=== PATIENT | female | born 1995 | race African-American/Black ===

== ENCOUNTER 2016-05-14 16:19 | Emergency (ER) | payer OTHER ==
[~2016-05-14] VITALS: Ht 162.6 cm; Wt 70.7 kg
[~2016-05-14 16:19] MED LIST: BCPILLS PO
[2016-05-14 16:25] VITALS: Ht 162.6 cm; Wt 70.7 kg
[2016-05-14 16:45] VITALS: O2SAT 99
[2016-05-14] MEDS ORDERED: SODIUM CHLORIDE 0.9% 1000ML 500 ML IV STA (16:45)
[2016-05-14] MEDS ORDERED: KETOROLAC TROMETHAMINE 30 MG/ML VIAL IV STA (16:45)
[2016-05-14] MEDS ORDERED: PRVHFAIN INH (16:54)
[2016-05-14 16:58] LABS: BASO % 0.3 %; BASO ABS # 0.03 K/uL (0-0.2); COMPLETE YES; EOS % 1.2 %; HEMATOCRIT 38.6 % (37-47); IG% 0.4 %; LYMPH % 25.4 %; MEAN CORPUSCULAR HEMOGLOBIN 31.8 pg (25-34); MEAN PLATELET VOLUME 10.1 fL (7.4-10.4); MONO % 8.6 %; NEUT % 64.1 %; PLATELET COUNT 336 K/uL (130-400); RED BLOOD COUNT 4.24 M/uL (4.2-5.4); WHITE BLOOD COUNT 9.05 K/uL (4.8-10.8)
[2016-05-14] MEDS ORDERED: OPTIRAY 320 IV PRN (17:00)
--- NOTE | 2016-05-14 17:13 | EMERGENCY ROOM VISIT NOTE ---
History Report prepared by Sandeep: Yadiel Javed Under the Supervision of: Dr. Alirio Ford M.D. First contact with patient: 16:39 Chief Complaint: CARDIAC ASSESSMENT Stated Complaint: CHEST PAINS- AFTER TAKING INHALER History of Present Illness The patient is a 20 year old female who presents to the Emergency Room with complaints of severe right sided chest pain starting about an hour ago. The patient has a history of asthma. She had an onset of chest pain similar to an asthma exacerbation about an hour ago. She took a puff of her inhaler and felt that she inhaled something else as well. Soon after, she started having an uncontrollable cough and chest pain. She reports some blood in the cough. She describes the chest pain to be a tightness. She has worsening pain with deep breathing and palpation. She denies any recent long trips. She denies any personal or family history of blood clots. She is not currently on any control. The patient denies fevers, chills, or any other complaints. Source of History: patient Onset: about an hour ago Position: chest (right) Symptom Intensity: severe Quality: other (tightness) Modifying Factors (Worsening): breathing (deep), other (palpation) Associated Symptoms: + cough, No chills, No fevers Review of Systems See HPI for pertinent positives & negatives. A total of 10 systems reviewed and were otherwise negative. Past Medical & Surgical Medical Problems: (1) Asthma Family History Cancer Diabetes mellitus Hypertension Kidney disease Kidney stones Social History Smoking Status: Never Smoker Alcohol Use: none Marital Status: single Occupation Status: employed, student Current/Historical Medications Scheduled Prednisone (Prednisone), 2 TAB PO DAILY Scheduled PRN Albuterol (Ventolin Hfa), 1-2 PUFFS INH DIRECTED PRN for Shortness of Breath Albuterol Hfa (Ventolin Hfa), 3 PUFFS INH Q4 PRN for Wheezing Allergies Coded Allergies: No Known Allergies (Unverified , 05/14/16) Physical Exam Vital Signs Date Time Temp Pulse Resp B/P Pulse Ox O2 Delivery O2 Flow Rate FiO2 05/14/16 18:01 131/58 05/14/16 17:54 64 16 100 05/14/16 17:30 121/79 05/14/16 17:24 65 21 100 05/14/16 17:00 112/80 05/14/16 16:54 75 23 100 05/14/16 16:49 82 05/14/16 16:49 73 14 100 05/14/16 16:45 99 Room Air 05/14/16 16:40 131/85 05/14/16 16:34 99 Room Air 05/14/16 16:25 36.8 88 20 124/79 96 Room Air Physical Exam GENERAL: Patient is in no acute distress. HEENT: No acute trauma, normocephalic atraumatic, mucous membranes moist, no nasal congestion, no scleral icterus. NECK: No stridor, no adenopathy, no meningismus, trachea is midline. CHEST: Tenderness over the right anterior chest wall. LUNGS: Clear to auscultation bilaterally, no wheeze, no rhonchi, breath sounds equal. HEART: Subtle systolic murmur with an irregular rhythm, normal rate. ABDOMEN: Soft, nontender, bowel sounds positive, no hernias, no peritonitis. EXTREMITIES: No cyanosis or edema, full range of motion of all the joints without pain or difficulty, no signs for acute trauma. NEUROLOGIC: Oriented x 3, no acute motor or sensory deficits, no focal weakness. SKIN: No rash, no jaundice, no diaphoresis. Medical Decision & Procedures ER Provider Diagnostic Interpretation: X ray results and stated below per my interpretation and radiologist interpretation. CTA results and stated below per my review and radiologist interpretation: CHEST ONE VIEW PORTABLE CLINICAL HISTORY: EVALUATE RESPIRATORY DISTRESS. DYSPNEA dyspnea COMPARISON STUDY: No previous studies for comparison. FINDINGS: The bones soft tissues and hemidiaphragms are normal. The cardiomediastinal silhouette is normal. The lungs are clear. The pulmonary vasculature is normal. IMPRESSION: Negative chest. Electronically signed by: Phill Valadez M.D. 05/14/2016 5:13 PM Dictated Date/Time: 05/14/2016 5:[address] ANGIOGRAPHY OF THE CHEST, PULMONARY EMBOLUS PROTOCOL CLINICAL HISTORY: Chest pain. Respiratory distress. COMPARISON STUDY: Wrist radiograph performed earlier today. TECHNIQUE: Following IV administration of 94 mL of Optiray-320, helical axial images of the chest were obtained utilizing the pulmonary embolus protocol. Maximal intensity projections and sagittal and coronal reformats were viewed on an independent 3D workstation. IV contrast was administered without complication. CT DOSE: 205.77 mGy.cm FINDINGS: No pulmonary emboli are identified. There is no evidence of thoracic aortic dissection. The size of the heart is normal. There is no pericardial effusion. Central airways are patent. There is no consolidation to suggest pneumonia. Mild mosaic attenuation is noted, most evident within the right lower lobe. No pneumothorax or pleural effusion is present. Bony thorax and upper abdomen are unremarkable. IMPRESSION: 1. No pulmonary emboli identified. 2. No consolidation to suggest pneumonia. 3. Mild mosaic attenuation, most evident within the right lower lobe. This suggests air trapping. Electronically signed by: Samson Arroyo M.D. 05/14/2016 6:00 PM Dictated Date/Time: 05/14/2016 5:56 PM Laboratory Results 05/14/16 16:45 Red Blood Count 4.24, Mean Corpuscular Volume 91.0, Mean Corpuscular Hemoglobin 31.8, Mean Corpuscular Hemoglobin Concent 35.0, Mean Platelet Volume 10.1, Neutrophils (%) (Auto) 64.1, Lymphocytes (%) (Auto) 25.4, Monocytes (%) (Auto) 8.6, Eosinophils (%) (Auto) 1.2, Basophils (%) (Auto) 0.3, Neutrophils # (Auto) 5.79, Lymphocytes # (Auto) 2.30, Monocytes # (Auto) 0.78, Eosinophils # (Auto) 0.11, Basophils # (Auto) 0.03 05/14/16 16:45 Test 05/14/16 16:45 White Blood Count 9.05 K/uL (4.8-10.8) Red Blood Count 4.24 M/uL (4.2-5.4) Hemoglobin 13.5 g/dL (12.0-16.0) Hematocrit 38.6 % (37-47) Mean Corpuscular Volume 91.0 fL (80-100) Mean Corpuscular Hemoglobin 31.8 pg (25-34) Mean Corpuscular Hemoglobin Concent 35.0 g/dl (32-36) Platelet Count 336 K/uL (130-400) Mean Platelet Volume 10.1 fL (7.4-10.4) Neutrophils (%) (Auto) 64.1 % Lymphocytes (%) (Auto) 25.4 % Monocytes (%) (Auto) 8.6 % Eosinophils (%) (Auto) 1.2 % Basophils (%) (Auto) 0.3 % Neutrophils # (Auto) 5.79 K/uL (1.4-6.5) Lymphocytes # (Auto) 2.30 K/uL (1.2-3.4) Monocytes # (Auto) 0.78 K/uL (0.11-0.59) Eosinophils # (Auto) 0.11 K/uL (0-0.5) Basophils # (Auto) 0.03 K/uL (0-0.2) RDW Standard Deviation 39.7 fL (36.4-46.3) RDW Coefficient of Variation 11.9 % (11.5-14.5) Immature Granulocyte % (Auto) 0.4 % Immature Granulocyte # (Auto) 0.04 K/uL (0.00-0.02) Urine Test NEG (NEG) Anion Gap 8.0 mmol/L (3-11) Est Creatinine Clear Calc Drug Dose 90.2 ml/min Estimated GFR () 98.7 Estimated GFR (Non- 85.1 BUN/Creatinine Ratio 7.4 (10-20) Calcium Level 8.8 mg/dl (8.5-10.1) Laboratory results reviewed by me. Medications Administered Medications (Trade) Dose Ordered Sig/Torin Route Start Time Stop Time Status Last Admin Dose Admin Sodium Chloride (Nss 1000ml) 500 ml @ 999 mls/hr Q31M STAT IV 05/14/16 16:45 05/14/16 17:15 DC 05/14/16 17:06 999 MLS/HR Ketorolac Tromethamine (Toradol Inj) 30 mg NOW STAT IV 05/14/16 16:45 05/14/16 16:47 DC 05/14/16 17:06 30 MG Prednisone (PredniSONE TAB) 40 mg NOW STAT PO 05/14/16 18:51 05/14/16 18:52 DC 05/14/16 19:08 40 MG ECG Indication: chest pain Rate (beats per minute): 80 Rhythm: normal sinus Findings: no acute ischemic change, no ectopy, other (sinus arrhythmia) ED Course 1639: The patient was evaluated in room B11B. A complete history and physical exam was performed. 1645: Toradol Inj 30 mg IV, Sodium Chloride 500 ml @ 999 mls/hr IV 1831: I reevaluated the patient who is doing well. 1836: I discussed the patient's case with Dr. Stevens, route sales trainee with [facility]. He recommended follow up as an outpatient. 1850: Prednisone 40 mg PO 1904: Reevaluated the patient. Discussed results and discharge instructions: She verbalized understanding and agreement. The patient is ready for discharge. Medical Decision Differential diagnosis includes but is not limited to costochondritis, pneumothorax, pneumonia, PE, aortic dissection, acute exacerbation of asthma, inhaled foreign body. There is no leukocytosis or concerning anemia. No significant electrolyte abnormality or kidney failure. testing is negative. EKG shows a normal sinus rhythm, no acute ischemia. Chest x-ray does not show pneumonia, pneumothorax or mediastinal widening. Chest CT does not show PE or evidence for pneumonia. There was no aortic dissection. There was some air trapping seen consistent with her asthma history. The patient was given IV saline, IV Toradol. She was given oral prednisone. She is not hypoxic, she does feel improved. I discussed her case with the on-call route sales trainee-there is no need for an emergent bronchoscopy for foreign debris. The patient was instructed to follow- up with her family doctor's office, possibly pulmonology if she is not improving. She was to be on a prednisone burst, she will use frequent albuterol , Motrin/Tylenol for pain. She can use heat to the chest wall as well. If her breathing worsens, if she is not improving, if she develops a fever, reassessment in the ER was suggested. The patient's pain does appear to be musculoskeletal-it is reproducible on exam. Consults Time Called: 1819 Consulting Physician: Dr. Stevens route sales trainee with [facility] Returned Call: [phone] I discussed the patient's case with Dr. Stevens, route sales trainee with [facility]. He recommended follow up as an outpatient. Impression Primary Impression: Right-sided chest pain Additional Impression: Exacerbation of asthma Scribe Attestation The scribe's documentation has been prepared under my direction and personally reviewed by me in its entirety. I confirm that the note above accurately reflects all work, treatment, procedures, and medical decision making performed by me. Departure Information Dispostion Home / Self-Care Prescriptions Albuterol Hfa (VENTOLIN HFA) 200 Puffs/03383 Mcg Aers 3 PUFFS INH Q4 Y for Wheezing, #1 INHALER 3 Refills Prov: Alirio Ford M.D. 05/14/16 Prednisone (Prednisone) 20 Mg Tab 2 TAB PO DAILY for 5 Days, #10 TAB Prov: Alirio Ford M.D. 05/14/16 Referrals No Doctor, Assigned (PCP) Forms IMPORTANT VISIT INFORMATION Patient Instructions My [facility] Additional Instructions prednisone daily for 5 days albuterol inhaler 2-3 puffs every 4 hours motrin/tylenol for pain heat to the chest wall may help return for worsening symptoms, if not improving, or if have fever imaging showed asthma, all other testing was ok Problem Qualifiers
[2016-05-14 17:15] LABS: BUN/CREATININE RATIO 7.4 (10-20); CALCIUM 8.8 mg/dl (8.5-10.1); CREATININE 0.96 mg/dl (0.60-1.20); POTASSIUM 3.3 mmol/L (3.5-5.1)
--- NOTE | 2016-05-14 18:01 | DIAGNOSTIC IMAGING REPORT ---
CT ANGIOGRAPHY OF THE CHEST, PULMONARY EMBOLUS PROTOCOL CLINICAL HISTORY: Chest pain. Respiratory distress. COMPARISON STUDY: Wrist radiograph performed earlier today. TECHNIQUE: Following IV administration of 94 mL of Optiray-320, helical axial images of the chest were obtained utilizing the pulmonary embolus protocol. Maximal intensity projections and sagittal and coronal reformats were viewed on an independent 3D workstation. IV contrast was administered without complication. CT DOSE: 205.77 mGy.cm FINDINGS: No pulmonary emboli are identified. There is no evidence of thoracic aortic dissection. The size of the heart is normal. There is no pericardial effusion. Central airways are patent. There is no consolidation to suggest pneumonia. Mild mosaic attenuation is noted, most evident within the right lower lobe. No pneumothorax or pleural effusion is present. Bony thorax and upper abdomen are unremarkable. IMPRESSION: 1. No pulmonary emboli identified. 2. No consolidation to suggest pneumonia. 3. Mild mosaic attenuation, most evident within the right lower lobe. This suggests air trapping. Electronically signed by: Samson Arroyo M.D. 05/14/2016 6:00 PM Dictated Date/Time: 05/14/2016 5:56 PM
[2016-05-14] MEDS ORDERED: PRED20TA PO (18:53)
[2016-05-14] MEDS ORDERED: VNTHFA/IN INH (19:25)
[2016-05-14 19:29] VITALS: BP 110/80; PULSE 71; TEMP 36.8; O2SAT 100
== END 2016-05-14 19:30 | disposition home or self-care (01) ==
LOC: C.EDB 16:20
DX: R07.9 Chest pain, unspecified (principal); J45.901 Unspecified asthma with (acute) exacerbation

== ENCOUNTER 2017-05-20 16:57 | Emergency (ER) | payer OTHER ==
[~2017-05-20] VITALS: Ht 162.6 cm; Wt 68.4 kg
[~2017-05-20 16:57] MED LIST changes: -BCPILLS PO; +PRVHFAIN INH; +VNTHFA/IN INH
[2017-05-20 16:58] VITALS: TEMP 36.7; Ht 162.6 cm; Wt 68.4 kg
--- NOTE | 2017-05-20 17:05 | EMERGENCY ROOM VISIT NOTE ---
History First contact with patient: 17:02 Chief Complaint: DIZZY Stated Complaint: HEADACHE, CHILLS, EXHAUSTION, DIZZINESS History of Present Illness The patient is a 21 year old female who presents to the Emergency Room with complaints of dizziness and fatigue Past Medical/Surgical History Medical Problems: (1) Asthma Family History Cancer Diabetes mellitus Hypertension Kidney disease Kidney stones Social History Smoking Status: Never Smoker Alcohol Use: none Marital Status: single Occupation Status: employed, student Current/Historical Medications Scheduled PRN Albuterol (Ventolin Hfa), 1-2 PUFFS INH DIRECTED PRN for Shortness of Breath Albuterol Hfa (Ventolin Hfa), 3 PUFFS INH Q4 PRN for Wheezing Physical Exam Vital Signs Date Time Temp Pulse Resp B/P (MAP) Pulse Ox O2 Delivery O2 Flow Rate FiO2 05/20/17 16:58 36.7 86 18 123/75 99 Room Air Medical Decision & Procedures Laboratory Results 05/20/17 17:15 Red Blood Count 4.47, Mean Corpuscular Volume 92.2, Mean Corpuscular Hemoglobin 31.8, Mean Corpuscular Hemoglobin Concent 34.5, Mean Platelet Volume 9.6, Neutrophils (%) (Auto) 66.8, Lymphocytes (%) (Auto) 23.4, Monocytes (%) (Auto) 7.4, Eosinophils (%) (Auto) 1.4, Basophils (%) (Auto) 0.4, Neutrophils # (Auto) 5.70, Lymphocytes # (Auto) 2.00, Monocytes # (Auto) 0.63, Eosinophils # (Auto) 0.12, Basophils # (Auto) 0.03 Test 05/20/17 17:15 White Blood Count 8.53 K/uL (4.8-10.8) Red Blood Count 4.47 M/uL (4.2-5.4) Hemoglobin 14.2 g/dL (12.0-16.0) Hematocrit 41.2 % (37-47) Mean Corpuscular Volume 92.2 fL (80-100) Mean Corpuscular Hemoglobin 31.8 pg (25-34) Mean Corpuscular Hemoglobin Concent 34.5 g/dl (32-36) Platelet Count 331 K/uL (130-400) Mean Platelet Volume 9.6 fL (7.4-10.4) Neutrophils (%) (Auto) 66.8 % Lymphocytes (%) (Auto) 23.4 % Monocytes (%) (Auto) 7.4 % Eosinophils (%) (Auto) 1.4 % Basophils (%) (Auto) 0.4 % Neutrophils # (Auto) 5.70 K/uL (1.4-6.5) Lymphocytes # (Auto) 2.00 K/uL (1.2-3.4) Monocytes # (Auto) 0.63 K/uL (0.11-0.59) Eosinophils # (Auto) 0.12 K/uL (0-0.5) Basophils # (Auto) 0.03 K/uL (0-0.2) RDW Standard Deviation 41.0 fL (36.4-46.3) RDW Coefficient of Variation 12.1 % (11.5-14.5) Immature Granulocyte % (Auto) 0.6 % Immature Granulocyte # (Auto) 0.05 K/uL (0.00-0.02) Urine Color YELLOW Urine Appearance CLEAR (CLEAR) Urine pH 7.5 (4.5-7.5) Urine Specific [place] 1.013 (1.000-1.030) Urine Protein NEG (NEG) Urine Glucose (UA) NEG (NEG) Urine Ketones NEG (NEG) Urine Occult Blood NEG (NEG) Urine Nitrite NEG (NEG) Urine Bilirubin NEG (NEG) Urine Urobilinogen NEG (NEG) Urine Leukocyte Esterase NEG (NEG) Urine Test NEG (NEG) Departure Information Referrals No Doctor, Assigned (PCP) Patient Instructions My [facility]
[2017-05-20 17:32] LABS: BASO % 0.4 %; BASO ABS # 0.03 K/uL (0-0.2); EOS % 1.4 %; EOS ABS # 0.12 K/uL (0-0.5); HEMATOCRIT 41.2 % (37-47); HEMOGLOBIN 14.2 g/dL (12.0-16.0); IG# 0.05 K/uL (0.00-0.02); LYMPH % 23.4 %; MEAN CELL VOLUME 92.2 fL (80-100); MEAN CORPUSCULAR HEMOGLOBIN 31.8 pg (25-34); MEAN CORPUSCULAR HGB CONC 34.5 g/dl (32-36); MEAN PLATELET VOLUME 9.6 fL (7.4-10.4); MONO % 7.4 %; MONO ABS # 0.63 K/uL (0.11-0.59); NEUT % 66.8 %; PLATELET COUNT 331 K/uL (130-400); RED CELL DISTRIBUTION WIDTH CV 12.1 % (11.5-14.5); WHITE BLOOD COUNT 8.53 K/uL (4.8-10.8)
[2017-05-20 18:04] LABS: CALCIUM 9.1 mg/dl (8.5-10.1); CREATININE 0.98 mg/dl (0.60-1.20); POTASSIUM 3.8 mmol/L (3.5-5.1)
[2017-05-20 18:43] LABS: MONOSPOT NEG (NEG)
--- NOTE | 2017-05-20 18:46 | DIAGNOSTIC IMAGING REPORT ---
CHEST 2 VIEWS ROUTINE CLINICAL HISTORY: Chest pain and shortness of breath on exertion. COMPARISON STUDY: Chest radiograph and chest CT May 14, 2016. FINDINGS: Lung volumes are normal. No pneumothorax or pleural effusion is noted. There is no consolidation. There is no evidence for pulmonary edema. Cardiomediastinal silhouette is normal. IMPRESSION: No acute cardiopulmonary findings. Electronically signed by: Samson Arroyo M.D. 05/20/2017 6:44 PM Dictated Date/Time: 05/20/2017 6:44 PM
[2017-05-20 20:00] LABS: ALBUMIN 4.2 gm/dl (3.4-5.0); TOTAL PROTEIN 8.3 gm/dl (6.4-8.2)
[2017-05-20 20:28] VITALS: BP 118/84; PULSE 69; O2SAT 99
--- NOTE | 2017-05-21 00:07 | EMERGENCY ROOM VISIT NOTE ---
History Report prepared by Sandeep: Edith Beltran Under the Supervision of: Dr. Ramón Doshi M.D. First contact with patient: 17:02 Chief Complaint: DIZZY Stated Complaint: HEADACHE, CHILLS, EXHAUSTION, DIZZINESS Nursing Triage Summary: patient reports dizziness, chest pain, abdominal pain, chills, hot sweats for a few days History of Present Illness The patient is a 21 year old female who presents to the Emergency Room with complaints of intermittent lightheadedness for the past 2 weeks. She feels like she is too tired to concentrate. 4 days ago, she started having chest tightness and SOB with the dizziness. The chest tightness and SOB seem to be worsening. She has a history of asthma, but her symptoms do not feel like asthma. She has been getting intermittent frontal headaches for the past 1.5 months. She describes the headache as a pressure. Her headache has been constant for the past 2 days. She drinks water and takes ibuprofen for her headaches which helps. She is having chills all the time, but will wake up in the middle of the night burning up. She does not have a thermometer to check her temperature. She reports nausea and decreased appetite. She has had ringing in her ears. She had some throat irritation yesterday for which she drank some tea. She has tingling in her finger which is normal for her. She notes that her fingers and toes are often cold. She notes that she sometimes gains weight and sometimes loses weight. She denies any cough, congestion, vomiting, abdominal pain, urinary symptoms, diarrhea, vaginal discharge, vaginal bleeding, leg swelling, leg pain , numbness, or weakness. She notes that [place]. She had a STD check and blood work recently which was normal. The anniversary of her father's is later this month. She does not smoke. She denies any alcohol or hormone use. She recently traveled here from [place]. She denies any other travel. Source of History: patient Onset: 2 weeks ago Position: other (generalized) Quality: other (lightheadedness) Timing: intermittent Associated Symptoms: + chills, + headache, + sorethroat, + SOB, + nausea, No cough, No vomiting, No abdominal pain, No diarrhea, No urinary symptoms, No weakness, No numbness Note: Pt reports chest tightness, decreased appetite. Review of Systems See HPI for pertinent positives & negatives. A total of 10 systems reviewed and were otherwise negative. Past Medical & Surgical Medical Problems: (1) Asthma Family History Cancer Diabetes mellitus Hypertension Kidney disease Kidney stones Social History Smoking Status: Never Smoker Alcohol Use: none Occupation Status: [employer] student Current/Historical Medications Scheduled PRN Albuterol (Ventolin Hfa), 3 PUFFS INH Q4H PRN for Wheezing Allergies Coded Allergies: No Known Allergies (Unverified , 05/14/16) Physical Exam Vital Signs Date Time Temp Pulse Resp B/P (MAP) Pulse Ox O2 Delivery O2 Flow Rate FiO2 05/20/17 20:28 69 16 118/84 99 05/20/17 18:50 71 16 113/78 100 Room Air 05/20/17 16:58 36.7 86 18 123/75 99 Room Air Physical Exam Constitutional: Vital signs reviewed. Eyes: Pupils are equal round reactive to light. Conjunctiva are noninjected. Contacts in place. No evidence of papilledema. ENT: Pharynx is clear without erythema or exudate. Mucous membranes are moist. Neck supple without meningeal signs. Respiratory: Clear to auscultation bilaterally. Breath sounds are equal bilaterally. Cardiovascular: Regular rate and rhythm. No rubs or gallops. GI: Soft, nondistended and nontender. Bowel sounds are present. Musculoskeletal: No peripheral edema. No lower extremity tenderness. Integumentary: No cyanosis. Neurological: The patient is awake and alert. Cranial nerves II-XII are intact. Motor is 5 out of 5 all extremities. Sensation is intact to light touch all extremities. Normal speech. No pronator drift. Psychiatric: Normal affect. Medical Decision & Procedures ER Provider Diagnostic Interpretation: X-ray results as stated below per interpretation by me and the radiologist: CHEST 2 VIEWS ROUTINE CLINICAL HISTORY: Chest pain and shortness of breath on exertion. COMPARISON STUDY: Chest radiograph and chest CT May 14, 2016. FINDINGS: Lung volumes are normal. No pneumothorax or pleural effusion is noted. There is no consolidation. There is no evidence for pulmonary edema. Cardiomediastinal silhouette is normal. IMPRESSION: No acute cardiopulmonary findings. Electronically signed by: Samson Arroyo M.D. 05/20/2017 6:44 PM Dictated Date/Time: 05/20/2017 6:44 PM Laboratory Results 05/20/17 17:15 Red Blood Count 4.47, Mean Corpuscular Volume 92.2, Mean Corpuscular Hemoglobin 31.8, Mean Corpuscular Hemoglobin Concent 34.5, Mean Platelet Volume 9.6, Neutrophils (%) (Auto) 66.8, Lymphocytes (%) (Auto) 23.4, Monocytes (%) (Auto) 7.4, Eosinophils (%) (Auto) 1.4, Basophils (%) (Auto) 0.4, Neutrophils # (Auto) 5.70, Lymphocytes # (Auto) 2.00, Monocytes # (Auto) 0.63, Eosinophils # (Auto) 0.12, Basophils # (Auto) 0.03 05/20/17 17:15 Test 05/20/17 17:15 05/20/17 18:05 White Blood Count 8.53 K/uL (4.8-10.8) Red Blood Count 4.47 M/uL (4.2-5.4) Hemoglobin 14.2 g/dL (12.0-16.0) Hematocrit 41.2 % (37-47) Mean Corpuscular Volume 92.2 fL (80-100) Mean Corpuscular Hemoglobin 31.8 pg (25-34) Mean Corpuscular Hemoglobin Concent 34.5 g/dl (32-36) Platelet Count 331 K/uL (130-400) Mean Platelet Volume 9.6 fL (7.4-10.4) Neutrophils (%) (Auto) 66.8 % Lymphocytes (%) (Auto) 23.4 % Monocytes (%) (Auto) 7.4 % Eosinophils (%) (Auto) 1.4 % Basophils (%) (Auto) 0.4 % Neutrophils # (Auto) 5.70 K/uL (1.4-6.5) Lymphocytes # (Auto) 2.00 K/uL (1.2-3.4) Monocytes # (Auto) 0.63 K/uL (0.11-0.59) Eosinophils # (Auto) 0.12 K/uL (0-0.5) Basophils # (Auto) 0.03 K/uL (0-0.2) RDW Standard Deviation 41.0 fL (36.4-46.3) RDW Coefficient of Variation 12.1 % (11.5-14.5) Immature Granulocyte % (Auto) 0.6 % Immature Granulocyte # (Auto) 0.05 K/uL (0.00-0.02) Urine Color YELLOW Urine Appearance CLEAR (CLEAR) Urine pH 7.5 (4.5-7.5) Urine Specific [place] 1.013 (1.000-1.030) Urine Protein NEG (NEG) Urine Glucose (UA) NEG (NEG) Urine Ketones NEG (NEG) Urine Occult Blood NEG (NEG) Urine Nitrite NEG (NEG) Urine Bilirubin NEG (NEG) Urine Urobilinogen NEG (NEG) Urine Leukocyte Esterase NEG (NEG) Urine Test NEG (NEG) Anion Gap 3.0 mmol/L (3-11) Est Creatinine Clear Calc Drug Dose 86.3 ml/min Estimated GFR () 95.6 Estimated GFR (Non- 82.5 BUN/Creatinine Ratio 10.6 (10-20) Calcium Level 9.1 mg/dl (8.5-10.1) Total Bilirubin 0.5 mg/dl (0.2-1) Direct Bilirubin 0.2 mg/dl (0-0.2) Aspartate Amino Transf (AST/SGOT) 16 U/L (15-37) Alanine Aminotransferase (ALT/SGPT) 25 U/L (12-78) Alkaline Phosphatase 64 U/L (45-117) Total Protein 8.3 gm/dl (6.4-8.2) Albumin 4.2 gm/dl (3.4-5.0) Thyroid Stimulating Hormone (TSH) 1.390 uIu/ml (0.300-4.500) Free Thyroxine 0.85 ng/dl (0.80-1.60) Lyme Disease IgG Antibody NEG (NEG) Lyme Disease IgM Antibody NEG (NEG) Monoscreen NEG (NEG) Bedside D-Dimer 151 ng/mlFEU (0-450) Laboratory results as reviewed by me. ECG Per My Interpretation Indication: chest pain Rate (beats per minute): 81 Rhythm: sinus rhythm Findings: other (no ST elevation, no PVC) ED Course 1746: The patient was evaluated in room B5. A complete history and physical exam was performed. 2023: Upon reevaluation, the patient was resting comfortably. I discussed tonight's findings with her. She verbalized agreement of the treatment plan. She was discharged home. Medical Decision This is a 21-year-old female who presents with multiple complaints today including chest pain, headache and tactile fevers. Differential diagnosis includes pneumonia, pulmonary embolism, pleurisy, asthma exacerbation, migraine headache, intracranial mass, mononucleosis, sinusitis, Lyme disease. I did perform a limited focused review of portions of the patient's old chart on the electronic medical record. The patient was here 1 year ago for right sided chest pain. She had a CT of her chest at that time which showed air trapping consistent with her asthma, but no PE. Pulmonology was consulted who recommended follow up with her PCP. I did evaluate the patient as noted above. The patient states that she has been having headaches for about a month and a half. There are mild and better with ibuprofen and water. She is neurologically intact. She is not currently having any significant headache. I did offer imaging but she declined and will follow up with her doctor for further evaluation of this. She also complained of tactile fever and chills. She also developed chest discomfort and shortness of breath. IV access was established. The patient was placed on a continuous equipment monitor phototypesetting. I did order and personally review the patient's 12-lead EKG and chest x-ray as described above. I did order and review the patient's blood work as noted in the electronic medical record. D-dimer is negative. Her white blood cell count is not elevated. Lyme and mono testing are negative. Test results were discussed with the patient. She was advised to follow-up closely with her doctor. She was discharged in good condition. Medication Reconcilliation Current Medication List: was personally reviewed by me Blood Pressure Screening Patient's blood pressure: Normal blood pressure Blood pressure disposition: Did not require urgent referral Impression Primary Impression: Acute chest pain Additional Impression: Headache Scribe Attestation The scribe's documentation has been prepared under my direct and personally reviewed by me in its entirety. I confirm that the note above accurately reflects all work, treatment, procedures, and medical decision making performed by me. Departure Information Dispostion Home / Self-Care Referrals No Doctor, Assigned (PCP) Forms HOME CARE DOCUMENTATION FORM, IMPORTANT VISIT INFORMATION Patient Instructions My [facility] Additional Instructions You were evaluated in the emergency department for your fatigue, increased thirst, shortness of breath and chest tightness The lab work did not reveal any abnormalities. We completed an EKG of your heart which should use a regular rhythm. The urine had no indication of infection. Your chest xray did not reveal any infection. There was some fluid behind your ears and swelling in your nose. This could possibly be the cause of your symptoms. We recommend you use an intranasal corticosteroid. Options are over the counter and include Flonase, nasocort, Nasonex. Pick one of the options and spray twice a day in your nostrils for 5 days and then daily for 3 weeks. This will help with the fullness and ringing in your ears. There is no indication for antibiotics at this time. We recommend follow up with your PCP by next week. Problem Qualifiers Additional Impression: Headache Headache type: unspecified Headache chronicity pattern: unspecified pattern Intractability: not intractable Qualified Codes: R51 - Headache
== END 2017-05-20 20:29 | disposition home or self-care (01) ==
LOC: C.EDB 16:58
DX: R07.9 Chest pain, unspecified (principal); R51 Headache; J45.909 Unspecified asthma, uncomplicated; Z83.3 Family history of diabetes mellitus